=== PATIENT | female | born 1945 | race Caucasian/White ===

== ENCOUNTER 2018-04-05 10:20 | Outpatient (CLI) | payer MEDICARE ==
[2018-04-05 10:53] LABS: Hemoglobin 13.8 g/dL (12.0-16.0); Mean Corpuscular HGB CONC 32.7 g/dL (32.0-36.0); Mean Corpuscular Hemoglobin 28.8 pg (27.0-31.0); Mean Corpuscular Volume 88.1 fL (78.0-98.0); Mean Platelet Volume 8.5 fL (7.4-10.4); Platelet Count 225 thou/uL (130-400); RBC Distribution Width 11.9 % (11.5-14.5); White Blood Cell (WBC) Count 5.6 thou/uL (4.8-10.8)
[2018-04-05 11:09] LABS: Anion Gap 13 mmol/L (10-20); BUN (Urea Nitrogen) 21 mg/dL (9.8-20.1); Calc. Creatinine Clearance 0 mL/min (70-130); Calcium 9.4 mg/dL (7.8-10.44); Carbon Dioxide 26 mmol/L (23-31); Chloride 106 mmol/L (98-107); Estimated GFR-MDRD 65; Glucose 88 mg/dL (80-115); Potassium 4.1 mmol/L (3.5-5.1); Sodium 141 mmol/L (136-145)
[2018-04-05 12:01] LABS: INR-International Normal Ratio 0.9; PTT 29.4 SEC (22.9-36.1); Prothrombin Time 12.5 SEC (12.0-14.7)
== END 2018-04-05 10:21 | disposition home or self-care (01) ==
LOC: LABBT 10:20
PROVIDERS: ATTEND Surgery
DX: Z01.812 Encounter for preprocedural laboratory examination (principal); M51.16 Intervertebral disc disorders with radiculopathy, lumbar region
CPT/HCPCS: 80048; 85027; 85610; 85730

== ENCOUNTER 2018-04-06 06:16 | Day surgery (SDC) | payer MEDICARE ==
[2018-04-05 10:24] VITALS: BMI 35.6
[2018-04-06] MEDS ORDERED: Thrombin 5000 UNITS/5 ML VIAL ONE (06:24)
[2018-04-06] MEDS ORDERED: Bacitracin Zinc Ointment 30 gm TUBE ONE (06:24)
[2018-04-06] MEDS ORDERED: Sodium Chloride 0.9% 10 ML ONE (06:24)
[2018-04-06] MEDS ORDERED: CEFAZOLIN/Water 2 GM/20 ML SYRINGE ONE (06:58)
[2018-04-06] MEDS ORDERED: Fentanyl 100 MCG/2 ML VIAL ONE (07:32)
[2018-04-06] MEDS ORDERED: PHENYLEPHRINE-NS 100 MCG/ML 10 ML SYRINGE ONE (08:57)
[2018-04-06] MEDS ORDERED: Promethazine HCl 25 MG/ML VIAL IM PRN ×2 (10:18→11:29)
[2018-04-06] MEDS ORDERED: Ondansetron HCl/PF 4 MG/2 ML Vial IVP PRN (10:18)
[2018-04-06] MEDS ORDERED: Morphine Sulfate 2 MG/ML SYRINGE SLOW IVP PRN (10:18)
[2018-04-06] MEDS ORDERED: Meperidine HCl/PF 25 MG/ML VIAL SLOW IVP PRN (10:18)
[2018-04-06] MEDS ORDERED: HYDROmorphone 2 MG/ML VIAL SLOW IVP PRN (10:18)
[2018-04-06] MEDS ORDERED: Promethazine HCl 25 MG/ML VIAL SLOW IVP PRN (10:18)
[2018-04-06] MEDS ORDERED: tiZANidine HCl 4 MG TAB PO PRN (11:29)
[2018-04-06] MEDS ORDERED: Fleet Enema 133 ML BOT PR PRN (11:29)
[2018-04-06] MEDS ORDERED: traMADol HCl 50 MG TAB PO PRN (11:29)
[2018-04-06] MEDS ORDERED: Mag-Al 1200 mg/1200 mg/30 ML UDCUP PO PRN (11:29)
[2018-04-06] MEDS ORDERED: Bisacodyl 10 MG SUPP PR PRN (11:29)
[2018-04-06] MEDS ORDERED: Acetaminophen 325 MG TAB PO PRN (11:29)
[2018-04-06] MEDS ORDERED: Milk Of Magnesia 30 ML UDCUP PO PRN (11:29)
--- NOTE | 2018-04-06 14:53 | OP ---
LOCATION: OR 11. WOUND TYPE: Type 1 wound. SURGEON: Esequiel Dejesus M.D. PROVISIONING ANALYST: Jon Bray PA-C. PREPROCEDURE DIAGNOSES: Left L2, left L3, left L4 radiculopathy with multilevel disk extrusion resul ting in low back and left leg pain, history of L4-L5 fusion at outside institution. PROCEDURES PERFORMED: 1. Left L2-L3 hemilaminotomy, foraminotomy, diskectomy. 2. Left L2-L3 transfacet approach for lateral and extraforaminal disk extrusion for decompression of left L2 nerve root. 3. Left L3-L4 hemilaminotomy, foraminotomy. 4. Use of operative microscope for microdissection. DESCRIPTION OF PROCEDURE: After informed consent was obtained from the patient, the patient brought to OR 11. Proper patient pause and identification was carried out. She was placed in excellent gene ral endotracheal anesthesia and positioned prone on the OR table. All appropriate points were padded . Midline hodan was identified that allow for approach to the L2, L3, L4 segments. This region was s terilely cleansed, prepared, and draped. Proper patient pause and identification was carried out. T he wound was then opened with a combination of sharp, monopolar and blunt dissection. The left L2, L 3 and left L4 segments were all exposed along with the hemilamina and facet capsules. We extended th e dissection up to the left L2 pedicle entry point to allow for the transfacet approach in the left L 2 foramen to fully decompress the lateral and extraforaminal portions of the nerve root course. Loca lization film confirmed our area of interest. We then performed a left L2, left L3 and left L4 hemil aminotomies and starting at the left L3-L4 segment, the microscope was brought in the field for micro dissection. Left L3-L4 hemilaminotomy, foraminotomy over the left L4 nerve root was performed. I th en identified the left L3 nerve root. A foraminotomy was performed there as well. I did not think i t necessary to remove any disk material at that segment as the majority of the compression was provid ed by facet hypertrophy and osteophytic overgrowth. We then turned our attention to the left L2-L3 s egment and working up to the left L2 pedicle, left L2-L3 hemilaminotomy was performed. We also exten ded this to a transfacet approach to allow for complete decompression of left L2 nerve root. Portion s of soft disk material removed in the left L2 axilla and the left L3 lateral recess. A small amount of CSF was identified as the dura was quite attenuated and thin and the area where the disk extrusio n was the most compressive, we obtained excellent decompression. There were components of the disk e xtrusion that were certainly osteophytic indicating longstanding nature. We identified; however, out into the foramen and the lateral portion of the foramen disk material that was softer and this was r emoved. At the conclusion of the surgery, there was excellent decompression left L2, left L3, and le ft L4 nerve roots and copious irrigation occurred throughout. Hemostasis was maximized. I should no te, no further CSF leak as the hole was quite small, similar to a pin hole. Copious irrigation occur red throughout. The wound was then closed in anatomic layers following the sprinkling of vancomycin powder and the use of DuraSeal.
[2018-04-06] MEDS ORDERED: Lidocaine 1% PF 5 ML VIAL ONE (15:08)
[2018-04-06] MEDS ORDERED: Dexamethasone 20 MG/5 ML VIAL ONE (15:08)
[2018-04-06] MEDS ORDERED: Glycopyrrolate 0.2 MG/ML 5 ML SYRINGE ONE (15:08)
[2018-04-06] MEDS ORDERED: Metoclopramide HCl 10 MG/2 ML VIAL ONE (15:08)
[2018-04-06] MEDS ORDERED: ePHEDrine/0.9% NaCl/PF SYRINGE 50 mg/10 ml ONE (15:08)
[2018-04-06] MEDS ORDERED: PROPOFOL 200 MG/20 ML VIAL ONE (15:08)
[2018-04-06] MEDS ORDERED: Ondansetron HCl/PF 4 MG/2 ML Vial ONE (15:08)
[2018-04-06] MEDS: CEFAZOLIN/Water 2 GM/20 ML SYRINGE SLOW IVP SCH ×2 (18:23→22:58)
[2018-04-06] MEDS: Sodium Chloride 0.9% 1,000 ML IV SCH ×2 (18:29→18:30)
[2018-04-06] MEDS ORDERED: Melatonin 3 MG TAB PO SCH (21:00)
[2018-04-06] MEDS ORDERED: Saccharomyces boulardii 250 MG CAP PO SCH (21:00)
[2018-04-06] MEDS ORDERED: [UNRECOGNIZED DRUG - OTHER] PO SCH (21:00)
[2018-04-06] MEDS ORDERED: Rosuvastatin 20 MG TAB PO SCH (21:00)
[2018-04-06] MEDS ORDERED: clonazePAM 0.5 MG TAB PO SCH (21:00)
[2018-04-06] MEDS: Metoprolol Tartrate 25 MG TAB PO SCH (21:13)
[2018-04-06] MEDS: HYDROcodone/Acetaminophen 7.5/325 mg Tablet PO PRN (21:13)
[2018-04-07] MEDS: Sodium Chloride 0.9% 1,000 ML IV SCH (02:34)
[2018-04-07] MEDS ORDERED: Levothyroxine Sodium 112 MCG TAB PO SCH (06:00)
[2018-04-07] MEDS: Metoprolol Tartrate 25 MG TAB PO SCH (07:53)
[2018-04-07 08:30] VITALS: BP 125/78; TEMP 97.6
[2018-04-07] MEDS ORDERED: Magnesium Chloride 64 MG TAB PO SCH (09:00)
[2018-04-07] MEDS ORDERED: Cyanocobalamin (Vitamin B-12) 1,000 MCG TAB PO SCH (09:00)
[2018-04-07] MEDS ORDERED: Valsartan 80 MG TAB PO SCH (09:00)
[2018-04-07] MEDS: HYDROcodone/Acetaminophen 7.5/325 mg Tablet PO PRN (09:23)
--- NOTE | 2018-04-07 09:48 | PRG ---
DATE OF SERVICE: 04/07/2018 Ms. Reyes is postoperative day 1 from left L2-L3 hemilaminotomy, foraminotomy, and diskectomy with als o transfacet approach to the left L2 foramen, also left L3-L4 hemilaminotomy, foraminotomy for decomp ression of left L3 and left L4 nerve roots as well. She states her left leg pain that she had prior to surgery is improved. She had some improvement with this even prior to surgery simply because of t he epidural steroid injection she had. She is on dual antiplatelet therapy and her strength is good in her lower extremity myotomes. This is important I think because to reduce her risk of falls in th e future. I am very pleased with how she is doing. She has mobilized. She has as expected incision al pain. We had a very small CSF leak intraoperatively that I discussed with her family, although th is again was very small and very little in the way of CSF leak and her dura was quite thin where the disk extrusion had been compressing on the dura. I am very pleased with how she is doing. We will p lisa for dismissal.
== END 2018-04-07 09:55 | disposition home or self-care (01) ==
LOC: SDC 06:16 → SJJU 11:46 → SDC 04-07 09:55
PROVIDERS: ATTEND Surgery
PROC: 0SB20ZZ Excision of Lumbar Vertebral Disc, Open Approach (ICD-10-PCS; principal; 2018-04-06)
PROC: 01NB0ZZ Release Lumbar Nerve, Open Approach (ICD-10-PCS; 2018-04-06)
DX: M51.16 Intervertebral disc disorders with radiculopathy, lumbar region (principal); Z88.8 Allergy status to other drugs, medicaments and biological substances
CPT/HCPCS: 76001; A4216; J0131; J1100; J2001; J2270; J2405; J2550; J2704; J2765; J3010; J3370; J3490

== ENCOUNTER 2021-05-08 00:46 | Inpatient (IN) | payer MEDICARE ==
[2021-05-08] MEDS ORDERED: Ondansetron PF 4 MG/2 ML Vial IVP PRN (05:17)
[2021-05-08] MEDS ORDERED: Acetaminophen 325 MG TAB PO PRN (05:17)
[2021-05-08] MEDS: Levothyroxine Sodium 125 MCG TAB PO SCH (06:36)
[2021-05-08 07:12] LABS: #Basophils 0.1 thou/uL (0.0-0.2); #Lymphocytes 0.7 thou/uL (1.20-3.40); #Neutrophils 15.7 thou/uL (1.40-6.50); %Basophils 0.4 % (0.0-1.0); %Eosinophils 0.2 % (0.0-10.0); %Monocytes 5.7 % (0.0-10.0); %Neutrophils 89.7 % (42.0-75.0); Hemoglobin 14.7 g/dL (12.0-16.0); Mean Corpuscular HGB CONC 32.8 g/dL (32.0-36.0); Mean Corpuscular Hemoglobin 28.1 pg (27.0-31.0); Mean Corpuscular Volume 85.7 fL (78.0-98.0); Mean Platelet Volume 8.3 fL (7.4-10.4); Platelet Count 326 thou/uL (130-400); RBC Distribution Width 11.9 % (11.5-14.5); Red Blood Cell (RBC) Count 5.22 mill/uL (4.20-5.40); White Blood Cell (WBC) Count 17.5 thou/uL (4.8-10.8)
[2021-05-08 07:13] LABS: ALT (SGPT) 75 U/L (8-55); AST (SGOT) 22 U/L (5-34); Albumin 3.7 g/dL (3.4-4.8); Alkaline Phosphatase 89 U/L (40-110); Anion Gap 17 mmol/L (10-20); BUN (Urea Nitrogen) 30 mg/dL (9.8-20.1); Bilirubin, Total 0.7 mg/dL (0.2-1.2); Calc. Creatinine Clearance 0 mL/min (70-130); Calcium 9.2 mg/dL (7.8-10.44); Carbon Dioxide 25 mmol/L (23-31); Chloride 102 mmol/L (98-107); Globulin 3.7 g/dL (2.4-3.5); Glucose 140 mg/dL (83-110); Potassium 3.7 mmol/L (3.5-5.1); Protein, Total 7.4 g/dL (5.8-8.1); Sodium 140 mmol/L (136-145)
[2021-05-08] MEDS ORDERED: Magnesium 2 GM/50 ML 2 GM in Premix Bag 1 BAG IVPB PRN (08:52)
[2021-05-08] MEDS ORDERED: Potassium Phosphate 15 MMOL in Sodium Chloride 0.9% 250 ML 250 ML IVPB PRN (08:52)
[2021-05-08] MEDS: Aspirin 81 mg Enteric Coated Tablet PO SCH (08:56)
[2021-05-08] MEDS: Zinc Sulfate 220 MG CAP PO SCH (08:56)
[2021-05-08] MEDS: Cholecalciferol 1,000 UNITS (25 MCG) TAB PO SCH ×2 (08:56→08:57)
[2021-05-08] MEDS: Ascorbic Acid 500 mg Chewable Tablet PO SCH (08:57)
[2021-05-08] MEDS: Clopidogrel Bisulfate 75 MG TAB PO SCH (08:57)
[2021-05-08] MEDS ORDERED: Enoxaparin Sodium 30 MG/0.3 ML SYRINGE SC SCH (09:00)
[2021-05-08] MEDS ORDERED: Dexamethasone 4 mg/ml Vial SLOW IVP SCH (09:00)
[2021-05-08] MEDS ORDERED: Dexamethasone 10 MG/ML VIAL SLOW IVP SCH ×2 (09:00)
[2021-05-08] MEDS: Enoxaparin Sodium 40 MG/0.4 ML SYRINGE SC SCH (09:21)
[2021-05-08 09:25] LABS: Phosphorus 3.6 mg/dL (2.3-4.7)
[2021-05-08] MEDS: Lactated Ringer's 1,000 ML IV SCH (18:49)
[2021-05-09 04:42] LABS: Mean Corpuscular HGB CONC 33.7 g/dL (32.0-36.0); Mean Corpuscular Hemoglobin 28.8 pg (27.0-31.0); Mean Corpuscular Volume 85.4 fL (78.0-98.0); Mean Platelet Volume 8.5 fL (7.4-10.4); Platelet Count 287 thou/uL (130-400); RBC Distribution Width 11.8 % (11.5-14.5); Red Blood Cell (RBC) Count 4.88 mill/uL (4.20-5.40); White Blood Cell (WBC) Count 16.1 thou/uL (4.8-10.8)
[2021-05-09 05:18] LABS: ALT (SGPT) 55 U/L (8-55); AST (SGOT) 16 U/L (5-34); Albumin 3.2 g/dL (3.4-4.8); Alkaline Phosphatase 78 U/L (40-110); Anion Gap 13 mmol/L (10-20); BUN (Urea Nitrogen) 32 mg/dL (9.8-20.1); Bilirubin, Total 0.5 mg/dL (0.2-1.2); Calc. Creatinine Clearance 91 mL/min (70-130); Calcium 8.8 mg/dL (7.8-10.44); Carbon Dioxide 28 mmol/L (23-31); Chloride 105 mmol/L (98-107); Globulin 3.5 g/dL (2.4-3.5); Glucose 135 mg/dL (83-110); Magnesium 2.1 mg/dL (1.6-2.6); Potassium 3.9 mmol/L (3.5-5.1); Protein, Total 6.7 g/dL (5.8-8.1); Sodium 142 mmol/L (136-145)
[2021-05-09 05:48] VITALS: BMI 31.6
[2021-05-09 06:10] LABS: Band 5 % (5-11); Lymphocytes 3 % (21-51); MDiff Complete? YES; Monocytes 6 % (0-10); Neutrophil 86 % (42-75)
[2021-05-09] MEDS: Rosuvastatin 20 MG TAB PO SCH ×2 (06:14→20:25)
[2021-05-09] MEDS: Levothyroxine Sodium 125 MCG TAB PO SCH (06:14)
[2021-05-09] MEDS: Lactated Ringer's 1,000 ML IV SCH ×2 (06:14→09:08)
[2021-05-09] MEDS ORDERED: GUAIFENESIN SF SOLN 200 MG/10 ML UDCUP PO PRN (07:41)
[2021-05-09] MEDS ORDERED: Loperamide HCl 2 MG CAP PO PRN (07:41)
[2021-05-09] MEDS ORDERED: Cepastat Lozenges 1 LOZ PO PRN (07:41)
[2021-05-09] MEDS ORDERED: Benzonatate 100 MG CAP PO PRN (07:41)
[2021-05-09] MEDS ORDERED: Artificial Tear Sol 15 ML BOT EA EYE PRN (07:41)
[2021-05-09] MEDS ORDERED: hydrALAZINE 20 MG/ML VIAL SLOW IVP PRN (07:41)
[2021-05-09] MEDS ORDERED: Diphenoxylate HCl/Atropine Tablet PO PRN (07:41)
[2021-05-09] MEDS ORDERED: Sodium Chloride 0.65% Nasal 44 ML BOT EA NARE PRN (07:41)
[2021-05-09] MEDS ORDERED: Hydrocerin (Eucerin) Cream 120 gm Jar TOP PRN (07:41)
[2021-05-09] MEDS ORDERED: Calcium Carbonate 500 MG ChewTAB PO PRN (07:41)
[2021-05-09] MEDS ORDERED: Ondansetron ODT 4 MG TAB SL PRN (07:41)
[2021-05-09] MEDS ORDERED: Senokot S 8.6-50 MG TAB PO PRN (07:41)
[2021-05-09] MEDS ORDERED: Loratadine 10 MG TAB PO PRN (07:41)
[2021-05-09] MEDS ORDERED: Bisacodyl 5 MG TAB PO PRN (07:41)
[2021-05-09] MEDS ORDERED: Albuterol Sulfate 2.5 mg/3 ml Neb NEB PRN (07:42)
[2021-05-09 07:52] LABS: Actual Bicarbonate (HCO3a) 25.4 mEq/L (22-28); Base Excess (BEa) 2.8 mEq/L (-2.0 to +3.0); CO2 Tension 33.1 mmHg (35.0-45.0); Calcium, Ionized (arterial) 1.12 mmol/L (1.12-1.30); Hemoglobin (Hb) 14.1 g/dL (12.0-16.0); Potassium - ABG Lab 3.83 mmol/L (3.70-5.30)
[2021-05-09 07:53] LABS: ALV-art Gradient 302.075 mmHg (0-20); O2 Tension (PaO2), arterial 48.7 mmHg (> 70.0); Puncture Site RRA
[2021-05-09] MEDS ORDERED: Albuterol 200 PUFF (6.7GM INHALER) INH PRN (07:53)
[2021-05-09] MEDS: Dexamethasone 4 mg/ml Vial SLOW IVP SCH (09:03)
[2021-05-09] MEDS: Enoxaparin Sodium 40 MG/0.4 ML SYRINGE SC SCH (09:09)
[2021-05-09] MEDS: Aspirin 81 mg Enteric Coated Tablet PO SCH (15:44)
[2021-05-09] MEDS: Clopidogrel Bisulfate 75 MG TAB PO SCH (15:45)
[2021-05-09] MEDS: Ascorbic Acid 500 mg Chewable Tablet PO SCH (15:45)
[2021-05-09] MEDS: Zinc Sulfate 220 MG CAP PO SCH (15:45)
[2021-05-10] MEDS: Lactated Ringer's 1,000 ML IV SCH (02:30)
[2021-05-10 04:39] LABS: Hemoglobin 13.9 g/dL (12.0-16.0); Mean Corpuscular HGB CONC 34.4 g/dL (32.0-36.0); Mean Corpuscular Hemoglobin 29.6 pg (27.0-31.0); Mean Corpuscular Volume 86.1 fL (78.0-98.0); Platelet Count 276 thou/uL (130-400); Red Blood Cell (RBC) Count 4.69 mill/uL (4.20-5.40); White Blood Cell (WBC) Count 16.5 thou/uL (4.8-10.8)
[2021-05-10 04:49] LABS: ALT (SGPT) 37 U/L (8-55); AST (SGOT) 13 U/L (5-34); Albumin 2.8 g/dL (3.4-4.8); Alkaline Phosphatase 75 U/L (40-110); Anion Gap 14 mmol/L (10-20); BUN (Urea Nitrogen) 30 mg/dL (9.8-20.1); Bilirubin, Total 0.5 mg/dL (0.2-1.2); Calc. Creatinine Clearance 102 mL/min (70-130); Calcium 8.5 mg/dL (7.8-10.44); Carbon Dioxide 23 mmol/L (23-31); Chloride 109 mmol/L (98-107); Globulin 3.2 g/dL (2.4-3.5); Glucose 150 mg/dL (83-110); Magnesium 2.1 mg/dL (1.6-2.6); Sodium 142 mmol/L (136-145)
[2021-05-10] MEDS: Levothyroxine Sodium 125 MCG TAB PO SCH (05:48)
[2021-05-10 06:04] LABS: Band 6 % (5-11); Lymphocytes 1 % (21-51); MDiff Complete? YES; Neutrophil 92 % (42-75); Platelet Morphology Comment Appears Adequate; Reactive Lymphocytes 1 % (0-10)
[2021-05-10] MEDS: Clopidogrel Bisulfate 75 MG TAB PO SCH (08:39)
[2021-05-10] MEDS: Cholecalciferol 1,000 UNITS (25 MCG) TAB PO SCH (08:39)
[2021-05-10] MEDS: Aspirin 81 mg Enteric Coated Tablet PO SCH (08:39)
[2021-05-10] MEDS: Dexamethasone 4 mg/ml Vial SLOW IVP SCH (08:39)
[2021-05-10] MEDS: Enoxaparin Sodium 40 MG/0.4 ML SYRINGE SC SCH (08:40)
[2021-05-10] MEDS: Zinc Sulfate 220 MG CAP PO SCH (08:41)
[2021-05-10] MEDS: Ascorbic Acid 500 mg Chewable Tablet PO SCH (08:41)
[2021-05-10 08:44] VITALS: TEMP 98.3
[2021-05-10] MEDS: Morphine 2 MG/ML VIAL SLOW IVP PRN ×2 (10:08→10:26)
[2021-05-10] MEDS ORDERED: Haloperidol Lactate 5 MG/ML VIAL SLOW IVP PRN (10:23)
[2021-05-10] MEDS ORDERED: Lorazepam 2 MG/ML VIAL SLOW IVP PRN (10:23)
[2021-05-10] MEDS ORDERED: Morphine IR Tab 15 MG TAB PO PRN (10:23)
[2021-05-10] MEDS ORDERED: Scopolamine 1.5 mg/72 hour Patch TD PRN (10:23)
[2021-05-10] MEDS ORDERED: diphenhydrAMINE 50 MG/ML VIAL IVP PRN (10:23)
== END 2021-05-10 12:45 | disposition expired | DRG 177 ==
LOC: CCU 04:53
PROVIDERS: ADMIT Internal Medicine; ATTEND Internal Medicine
PROC: 8E0ZXY6 Isolation (ICD-10-PCS; principal; 2021-05-08)
PROC: 5A09457 Assistance with Respiratory Ventilation, 24-96 Consecutive Hours, Continuous Positive Airway Pressure (ICD-10-PCS; 2021-05-08)
DX: U07.1 COVID-19 (principal); J12.82 Pneumonia due to coronavirus disease 2019; J96.01 Acute respiratory failure with hypoxia; Z66 Do not resuscitate; Z51.5 Encounter for palliative care; I25.10 Atherosclerotic heart disease of native coronary artery without angina pectoris; I10 Essential (primary) hypertension; E78.5 Hyperlipidemia, unspecified; E03.9 Hypothyroidism, unspecified; R73.03 Prediabetes; F17.210 Nicotine dependence, cigarettes, uncomplicated; E66.9 Obesity, unspecified; Z88.8 Allergy status to other drugs, medicaments and biological substances; Z79.82 Long term (current) use of aspirin; Z79.890 Hormone replacement therapy; Z79.01 Long term (current) use of anticoagulants; Z79.899 Other long term (current) drug therapy; Z95.5 Presence of coronary angioplasty implant and graft; Z90.49 Acquired absence of other specified parts of digestive tract; Z90.710 Acquired absence of both cervix and uterus; Z98.890 Other specified postprocedural states; Z90.89 Acquired absence of other organs; Z82.49 Family history of ischemic heart disease and other diseases of the circulatory system; Z82.3 Family history of stroke; Z68.31 Body mass index [BMI] 31.0-31.9, adult
CPT/HCPCS: 36415; 36600; 71045; 80053; 82728; 82805; 83615; 83735; 84100; 85025; 85379; 86140; 94660; J1100; J1650; J2270; J3490